=== PATIENT | female | born 1995 | race Caucasian/White ===

== ENCOUNTER 2017-04-08 11:23 | Emergency (ER) | payer OTHER ==
[~2017-04-08] VITALS: Ht 162.6 cm; Wt 79.5 kg
[2017-04-08] MEDS ORDERED: DULO1CAP2 PO (11:31)
[2017-04-08] MEDS ORDERED: E-ZMIS3 XX (15:34)
[2017-04-08] MEDS ORDERED: PROAAER10 INH (15:34)
[2017-04-08 15:44] VITALS: BP 132/79
== END 2017-04-08 15:45 | disposition home or self-care (01) ==
LOC: M ED 11:23
DX: J30.81 Allergic rhinitis due to animal (cat) (dog) hair and dander (principal); F17.210 Nicotine dependence, cigarettes, uncomplicated; Z79.899 Other long term (current) drug therapy; Z88.8 Allergy status to other drugs, medicaments and biological substances